=== PATIENT | male | born 2000 | race Caucasian/White ===

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

== ENCOUNTER 2022-05-22 17:09 | Emergency (ER) | payer OTHER ==
[2022-05-22 17:19] VITALS: BP 120/78; PULSE 72; RESP 19; TEMP 98.6; BMI 25.1
[2022-05-22 19:50] LABS: HIV INTERPRETATION NEGATIVE (NEGATIVE)
== END 2022-05-22 18:09 | disposition home or self-care (01) ==
LOC: JERFT 17:09
DX: Z11.3 Encounter for screening for infections with a predominantly sexual mode of transmission (principal)
CPT/HCPCS: 36415; 86780; 87389; 87491; 87591; 99283-25